=== PATIENT | male | born 2000 | race Caucasian/White ===

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

== ENCOUNTER 2019-03-29 20:15 | Emergency (ER) | payer SELFPAY ==
[~2019-03-29] VITALS: Ht 185.4 cm; Wt 95.3 kg
[2019-03-29 20:23] VITALS: BP_SYST 134
--- NOTE | 2019-03-29 20:23 | NUR ---
Patient to ER bed 7 to gown for evaluation. Side rails up. Report given to ONEL Soares.
--- NOTE | 2019-03-29 20:32 | NUR ---
Patient brought in by self complaining of pain to left radial wrist after being puncture by small steel lydia. Small abrasion noted with mild erythema and swelling. No other complaints/injuries per patient or as noted. Pain 4/10. No other complaints/injuries per patient or as noted. Will continue to monitor.
--- NOTE | 2019-03-29 20:47 | NUR ---
ER at bedside examining patient.
[2019-03-29] MEDS ORDERED: DIPH-TET-PERTUS Vaccine 0.5 ML VIAL (ADACEL) I.M. ONE (21:15)
[2019-03-29 22:08] VITALS: BP_SYST 128
--- NOTE | 2019-03-29 22:08 | NUR ---
Patient given written and verbal discharge instructions and verbalizes understanding. ER MD discussed with patient the results and treatment provided. Patient in stable condition. ID arm band removed. Rx of Augmentin given. Patient educated on pain management and to follow up with PMD in 2-3 days. Pain Scale 0/10 Opportunity for questions provided and answered. Medication side effect fact sheet provided.
== END 2019-03-29 22:08 | disposition home or self-care (01) ==
LOC: SED 20:15
DX: S61.532A Puncture wound without foreign body of left wrist, initial encounter (principal); R03.0 Elevated blood-pressure reading, without diagnosis of hypertension; W26.8XXA Contact with other sharp object(s), not elsewhere classified, initial encounter; Y93.89 Activity, other specified; Y92.69 Other specified industrial and construction area as the place of occurrence of the external cause; Y99.8 Other external cause status
CPT/HCPCS: 90715; 99283

== ENCOUNTER 2019-11-09 03:01 | Emergency (ER) | payer SELFPAY ==
[~2019-11-09] VITALS: Ht 185.4 cm; Wt 108.9 kg
[2019-11-09 03:01] VITALS: BP_SYST 142
--- NOTE | 2019-11-09 03:12 | NUR ---
Patient to ER [facility] 1 to gown for evaluation. Side rails up. Accompanied by Shanna Bautista
--- NOTE | 2019-11-09 03:20 | NUR ---
ER Dr. Costa at bedside examining patient.
[2019-11-09 03:31] VITALS: BP_SYST 135
--- NOTE | 2019-11-09 03:31 | NUR ---
Patient given written and verbal discharge instructions and verbalizes understanding. ER MD discussed with patient the results and treatment provided. Patient in stable condition. ID arm band removed. Rx of Motrin and Prednisone given. Patient educated on pain management and to follow up with PMD. Pain Scale 0. Opportunity for questions provided and answered. Medication side effect fact sheet provided. Accompanied by YASMANY/Biju Bautista
== END 2019-11-09 03:31 ==
LOC: SED 03:01
DX: J02.9 Acute pharyngitis, unspecified (principal); F17.290 Nicotine dependence, other tobacco product, uncomplicated
CPT/HCPCS: 99283